=== PATIENT | male | born 1985 | race Caucasian/White ===

== ENCOUNTER 2022-09-23 10:39 | Emergency (ER) | payer OTHER ==
[2022-09-23 11:37] LABS: CARBON DIOXIDE,CO2 26.9 mmol/L (21.0-32.0); POTASSIUM,K 3.8 mmol/L (3.5-5.1)
== END 2022-09-23 13:07 | disposition home or self-care (01) ==
LOC: MW.ED 10:39
DX: R55 Syncope and collapse (principal); F19.10 Other psychoactive substance abuse, uncomplicated
CPT/HCPCS: 36415; 70450; 70450-26; 71045; 71045-26; 80053; 80305-QW; 81003; 85025; 93005; 93010; 99283; 99284